=== PATIENT | male | born 1980 ===

== ENCOUNTER 2018-07-02 09:25 | Day surgery (SDC) | payer OTHER | END 2018-07-02 13:40 | disposition home or self-care (01) | LOC: AMB-ENDOS 09:25 | DX: D13.1 Benign neoplasm of stomach (principal) ==

== ENCOUNTER 2021-10-29 08:00 | Outpatient (CLI) | payer OTHER | END 2021-10-29 08:04 | disposition home or self-care (01) | LOC: SONOGRAMA 08:00 | PROVIDERS: ATTEND Pathology Anatomic Pathology & Clinical Pathology | DX: E04.1 Nontoxic single thyroid nodule (principal) ==